=== PATIENT | male | born 1950 | race Caucasian/White ===

== ENCOUNTER 2018-07-21 05:47 | Day surgery (SDC) | payer MEDICARE ==
--- NOTE | 2018-07-19 20:15 | HP ---
ADMISSION HISTORY AND PHYSICAL: DATE OF ADMISSION/SURGERY: 07/21/18 DATE OF OFFICE VISIT: 07/16/18 ATTENDING SURGEON: Sonia Suero MD * (DICTATED BY TONY RODRIGUEZ) PROCEDURE: Left shoulder arthroscopy, excision of distal clavicle, decompression, debridement, subpectoral biceps tenodesis, possible rotator cuff repair. CHIEF COMPLAINT: Left shoulder. HISTORY OF PRESENT ILLNESS: Terence is a 68-year-old male who presents to the clinic for left shoulder pain due to AC joint arthritis, biceps tendinitis, and probable rotator cuff tear. He has failed conservative measures and therefore agreed to undergo left shoulder arthroscopy, excision of distal clavicle, decompression, debridement, subpectoral biceps tenodesis, and possible rotator cuff repair with Dr. Suero on 07/21/18. PAST MEDICAL HISTORY: He denies current problems. PAST SURGICAL HISTORY: 1. Neck surgery. 2. Right arm surgery. 3. Wrist and forearm surgery. 4. Left and right hip resurfacing. The patient denies prior complications with anesthesia. MEDICATIONS: No active medications. ALLERGIES: No known drug allergies. FAMILY HISTORY: He denies pertinent family history. SOCIAL HISTORY: He lives alone. He is retired. He denies smoking. He reports occasional alcohol consumption. He exercises regularly. He is right- hand dominant. REVIEW OF SYSTEMS: A 14-point review of systems was reviewed with the patient. Positive for current complaint, otherwise negative. Denies fevers, chills, chest pain, shortness of breath, history of DVT or PE, history of bleeding disorder. PHYSICAL EXAMINATION GENERAL: A 68-year-old well-developed, well-nourished male, in no acute distress. VITAL SIGNS: Height 70, weight 180, blood pressure 141/72, respiratory rate 16 , BMI 25.8. HEENT: Normocephalic, atraumatic. PERRLA. Throat: Clear. NECK: Supple. PULMONARY: Lungs are clear to auscultation bilaterally. No wheezing, rhonchi, or rales. CARDIAC: Regular rate and rhythm. S1, S2. No murmurs, gallops, or rubs. No edema. ABDOMEN: Positive bowel sounds, soft, nontender. NEURO: Alert and oriented x3. Cranial nerves grossly intact. MUSCULOSKELETAL: Left upper extremity: Skin is intact. No warmth or erythema. Tender over the distal clavicle. Tender over the bicipital groove. Able to forward flex and abduct to 175, internally rotated T12 with pain. Passive forward flexion and rotator cuff testing with pain. Positive impingement, [place], [place], and [place]. +2 radial pulse. Sensation is intact to light touch distally. DIAGNOSTIC STUDIES: MRI revealed no full thickness rotator cuff tear, showed partial thickness tearing of the supraspinatus tendon and mild tendinopathy of the subscapularis and infraspinatus and subluxation of the biceps with tendinitis. IMPRESSION: Left shoulder acromioclavicular joint arthritis, biceps tendinitis, and partial thickness rotator cuff tear. PLAN: The patient is scheduled to undergo a left shoulder arthroscopy, excision of distal clavicle, decompression, debridement, subpectoral biceps tenodesis, and possible rotator cuff repair with Dr. Suero on 07/21/18. Percocet will be used for postop pain management. The patient will follow up in 10 to 14 days postop for followup and suture removal. TONY RODRIGUEZ [id number]/[facility] #: [id number] MIKHAIL
[2018-07-21] MEDS ORDERED: ceFAZolin 2 GM PREMIX in ORs 2 GM/50 ML BAG IVPB ONE (06:47)
[2018-07-21] MEDS ORDERED: Ropivacaine* 2 MG/ML 20 ML VIAL (0.2%) ONE (07:09)
[2018-07-21] MEDS ORDERED: ROPIVACAINE 5 MG/ML 30 ML BTL (0.5%) ONE (07:21)
[2018-07-21] MEDS ORDERED: EPINEPHRINE 1 MG/ML 1 ML VIAL ONE ×2 (07:21→07:24)
[2018-07-21] MEDS ORDERED: Dexamethasone IV* 4 MG/ML 1 ML (4 MG) ONE ×2 (07:21→08:31)
[2018-07-21] MEDS ORDERED: Midazolam* 1 MG/ML 2 ML VIAL (2 MG) ONE (07:26)
[2018-07-21] MEDS ORDERED: fentaNYL* 50 MCG/ML 2 ML VIAL (100 MCG VIAL) ONE (07:26)
[2018-07-21] MEDS ORDERED: Lidocaine 2% PF * 5 ML VIAL ONE (07:54)
[2018-07-21] MEDS ORDERED: Rocuronium* 10 MG/ML VIAL ONE (07:54)
[2018-07-21] MEDS ORDERED: oxyCODONE TAB* 5 MG TAB PO PRN (08:29)
[2018-07-21] MEDS ORDERED: DiMENhydriNATE IV* 50 MG/ML VIAL IV PUSH PRN (08:29)
[2018-07-21] MEDS ORDERED: HYDROmorphone INJ1* 1 MG/ML SYRINGE IV PRN (08:29)
[2018-07-21] MEDS ORDERED: Naloxone* 0.4 MG/ML 1 ML VIAL IV PRN (08:29)
[2018-07-21] MEDS ORDERED: Acetaminophen IV 1GM/100ML * 100 ML ONE (08:30)
[2018-07-21] MEDS ORDERED: Ketorolac INJ* 30 MG/ML 1 ML VIAL ONE (08:31)
[2018-07-21] MEDS ORDERED: Metoclopramide IV* 5 MG/ML 2 ML VIAL ONE (08:31)
[2018-07-21] MEDS ORDERED: Ondansetron INJ* 2 MG/ML VIAL ONE (08:31)
[2018-07-21] MEDS ORDERED: Neostigmine Methylsulfate* 1 MG/ML 10 ML VIAL (1 mg/ml) ONE ×2 (09:18→11:58)
[2018-07-21] MEDS ORDERED: Glycopyrrolate IV* 0.2 MG/ML 1 ML VIAL ONE ×2 (09:18→11:58)
[2018-07-21] MEDS ORDERED: EPHEDrine (Pressors)* 50 MG/ML VIAL ONE (10:41)
[2018-07-21 10:48] VITALS: BP 124/84
[2018-07-21] MEDS ORDERED: Propofol* 10 MG/ML 20 ML BTL ONE (11:52)
--- NOTE | 2018-07-21 18:15 | OP ---
CC: PCP OPERATIVE REPORT: DATE OF OPERATION: 07/21/18 DATE OF : 52 SURGEON: Sonia Suero MD RESIDENTIAL DIRECT SUPPORT PROFESSIONAL: TONY Davis An assistant professor of archaeology was needed for the entirety of the case to help with positioning, retraction, and was utilized throughout all portions of the case. ANESTHESIOLOGIST: Dr. Panda. ANESTHESIA: General with interscalene block, regional block. PRE-OP DIAGNOSES: Left shoulder acromioclavicular joint arthritis, high-grade partial-thickness tear of the rotator cuff, bicipital tendinitis, tendinosis and impingement. POST-OP DIAGNOSES: Left shoulder acromioclavicular joint arthritis, high-grade partial-thickness tear of the rotator cuff, bicipital tendinitis, tendinosis and impingement, mild chondrosis. OPERATIVE PROCEDURE: Left shoulder arthroscopy with: 1. Extensive glenohumeral debridement including chondroplasty. 2. Subacromial decompression with acromioplasty. 3. Distal clavicle excision. 4. Rotator cuff repair using Regeneten patch. 5. Subpectoral biceps tenodesis. INDICATIONS: Jean Adams is a 68-year-old male with persistent shoulder pain and dysfunction, who has failed conservative management. He has elected to proceed with surgical treatment. Risks and benefits were discussed at length and included, but are not limited to bleeding, infection; damage to nerves, vessels, surrounding structures; wound nonhealing, persistent pain, need for further surgery, scarring, stiffness, incomplete relief of symptoms, risks of anesthesia. COMPLICATIONS: None. ESTIMATED BLOOD LOSS: Minimal. IMPLANTS USED: One Regeneten patch as well as 1 Q-Fix 2.8 mm. DESCRIPTION OF PROCEDURE: The patient was greeted in the preoperative area by the attending surgeon. Correct extremity was marked and consent was confirmed. The patient then underwent interscalene nerve block by the anesthesiologist, after which he was brought back to the operating suite where he was placed in supine position on the operating table. He underwent general anesthesia and endotracheal intubation. He was placed in the right lateral decubitus position with an axillary roll. All bony prominences were padded. He was secured with a pegboard. The left shoulder was then prepped and draped in the usual sterile fashion beginning with chlorhexidine soap, scrub, and alcohol wipe and a final prep with ChloraPrep. After appropriate surgical pause indicating side, site, procedure, and administration of antibiotics, the standard posterolateral incision was made sharply with 11-blade. The scope was introduced into the joint and the joint was examined. There were grade 0 to 1 changes of the humerus, grade 2 changes with unstable flaps of the glenoid. The anterior portal was made in an outside- in fashion. Shaver was used to debride back the unstable flaps of the cartilage , the anterior, posterior and superior labrum. The biceps was obviously shredded with tendinopathy and tendinitis. The biceps was then tenotomized for later tenodesis. The subscap undersurface had some partial-thickness tearing, but not more than 5% to 10%. The undersurface of the supraspinatus tendon had some moderate to high- grade partial-thickness tearing. Once the debridement was complete and the inferior recess was checked and found to be intact, attention was directed to the subacromial space. With the scope in the subacromial space, the lateral portal was made in an outside- in fashion. The bursa was removed using a shaver. The electrocautery device was used to expose the anterolateral spur. There was a very sharp anterolateral spur about the acromion. A 4-0 oval donya was then used to do an acromioplasty to remove the edges. The CA ligament was peeled back as well. This was taken back to the AC joint, which had a significant stenosis. There was also calcified meniscus. With the donya positioned anteriorly, the distal clavicle excision was done removing 8 mm of distal end of the clavicle. Care was taken to remove the calcified meniscus as well to make sure all bony debris was removed. 8 mm was removed. CC ligaments were protected to ensure that no damage was happening to that. Attention was then directed to the cuff. The cuff was gently probed and found to have no full-thickness tears. 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 A size medium Regeneten patch was then placed to the lateral portal through a separate stab incision. The cannula was placed to pass the tendon elena. The patch was secured medially with the appropriate number of tendon elena and then laterally with PEEK elena into the bone. Final images were obtained. The wounds were then copiously irrigated with sterile saline and attention was directed to the biceps. The bed was airplaned to the left side. The anterior aspect of the shoulder was prepped using ChloraPrep. A 15-blade was used to make an incision in line with the biceps. Soft tissues were carefully dissected to expose the pec. The remainder of the dissection was done bluntly. The biceps was identified and brought through the wound. The groove was then prepared in usual fashion with electrocautery device, the red ball rasp and osteotome. The Q-Fix was drilled unicortically and the Q-Fix was deployed with excellent purchase. The sutures were then passed through the tendon in a Mann-Faisal type configuration. Excess tendon was excised. This was secured 1 cm proximal to the musculotendinous junction. The biceps was shuttled back to the wound and secured. The wounds were copiously irrigated with sterile saline. The anterior wound was closed in layers with 2-0 Vicryl and 3-0 Monocryl. The portals were closed with 3-0 nylon. Sterile dressings were applied. Cryo/Cuff and UltraSling were applied. He was awoken from anesthesia and transferred to the PACU in stable condition. POSTOPERATIVE PLAN: He will be nonweightbearing. He will be in a sling for 4 weeks. He will start physical therapy next week. He will be discharged on pain medication. DVT prophylaxis was considered, but deferred due to no previous personal or family history. I will see the patient back in 10 to 14 days. [id number]/[facility] #: [id number] MIKHAIL
== END 2018-07-21 11:28 | disposition home or self-care (01) ==
LOC: OR 05:47
PROVIDERS: ATTEND Orthopaedic Surgery
DX: M19.012 Primary osteoarthritis, left shoulder (principal); M75.112 Incomplete rotator cuff tear or rupture of left shoulder, not specified as traumatic; M75.22 Bicipital tendinitis, left shoulder; M75.42 Impingement syndrome of left shoulder; G89.18 Other acute postprocedural pain
CPT/HCPCS: C1713; C1776; J0690; J1100; J1885; J2250; J2405; J2704; J2710; J2765; J2795; J3010